=== PATIENT | male | born 1970 | race Caucasian/White ===

== ENCOUNTER → 2021-02-11 | Day surgery (SDC) | payer BC ==
[~2021-02-11] VITALS: Ht 170.2 cm; Wt 100.7 kg
[~2021-02-11] MED LIST: ASPIRIN E.C. 8181 MG PO; LIPITOR 80MG80 MG PO; PRIL40 PO; PRINIVIL20 MG PO; SYNTHROID0.1 MG/TAB PO; VITAMIN C500 MG PO
[2021-02-11 10:40] VITALS: BP 111/84; PULSE 95; TEMP 99.1
[2021-02-11 11:35] VITALS: BP 105/70; PULSE 97; TEMP 98.2
--- NOTE | 2021-02-11 11:35 | NUR ---
Pt to [facility] via cart from [facility]O. Pt awake and alert. Pt ambulates to recliner with stand by assist. Warm blanket provided. Pepsi and toast given per pt request. in room. Will continue to monitor. Call light within reach.
[2021-02-11 11:50] VITALS: BP 110/83; PULSE 83
--- NOTE | 2021-02-11 11:50 | NUR ---
Pt continues to rest. Tolerating food and fluids without difficulties. Will continue to monitor. Call light within reach.
[2021-02-11 12:05] VITALS: BP 102/74; PULSE 73
--- NOTE | 2021-02-11 12:05 | NUR ---
Discharge instructions reviewed. Pt voices understanding. IV site disontinued with all parts intact. Pt up to dress. Call light within reach.
--- NOTE | 2021-02-11 12:15 | NUR ---
Pt escorted to private car via wheel chair. Pt accompanied home by his .
== END ==
LOC: SDCO 09:56
DX: Z12.11 Encounter for screening for malignant neoplasm of colon (principal); D12.0 Benign neoplasm of cecum; D12.3 Benign neoplasm of transverse colon; D12.5 Benign neoplasm of sigmoid colon; K21.9 Gastro-esophageal reflux disease without esophagitis; I10 Essential (primary) hypertension; E78.5 Hyperlipidemia, unspecified; E03.9 Hypothyroidism, unspecified; Z79.82 Long term (current) use of aspirin; Z20.822 Contact with and (suspected) exposure to COVID-19; Z79.890 Hormone replacement therapy; Z79.899 Other long term (current) drug therapy
CPT/HCPCS: J2704; J7030

== ENCOUNTER → 2021-10-28 | Outpatient (CLI) | payer BC | LOC: COL.RAD 11:20 | DX: J84.10 Pulmonary fibrosis, unspecified (principal); J98.4 Other disorders of lung | CPT/HCPCS: Q9967 ==